=== PATIENT | female | born 1950 | race Caucasian/White ===

== ENCOUNTER 2017-03-25 11:10 | Inpatient (IN) | payer OTHER, MEDICARE ==
[~2017-03-25] VITALS: Ht 162.6 cm; Wt 119.5 kg
[2017-03-29 08:56] LABS: BILIRUBIN NEGATIVE (NEGATIVE); BLOOD NEGATIVE Ery/uL (NEGATIVE); CLARITY CLEAR (CLEAR); COLOR YELLOW (YELLOW); GLUCOSE (U) NORMAL (NORMAL); KETONE (U) NEGATIVE (NEGATIVE); LEUKOCYTES NEGATIVE Leu/uL (NEGATIVE); NITRITE NEGATIVE (NEGATIVE); PROTEIN NEGATIVE (NEGATIVE); SPECIFIC GRAVITY <=1.005 (1.001-1.030)
--- NOTE | 2017-03-30 14:07 | NUR ---
MET WITH PT. TO COMPLETE DISCHARGE PAPERWORK. INSURANCE IS COVERING PT. THROUGH 04/02/17 WITH D/C ON 04/03/17. PT. WILL D/C HOME. PT. REQUESTED [facility]/FADY FOR PT/OT AND NURSING ASSESSMENT. [facility] TO DELIEVER A HOSPITAL BED UPON DISCHARGE. D/C NOTICE AND QUESTIONNAIRE GIVEN.
[2017-03-31 19:42] LABS: BILIRUBIN NEGATIVE (NEGATIVE); BLOOD NEGATIVE Ery/uL (NEGATIVE); CLARITY CLEAR (CLEAR); COLOR YELLOW (YELLOW); GLUCOSE (U) NORMAL (NORMAL); KETONE (U) TRACE mg/dL (NEGATIVE); LEUKOCYTES NEGATIVE Leu/uL (NEGATIVE); NITRITE NEGATIVE (NEGATIVE); PROTEIN NEGATIVE (NEGATIVE); SPECIFIC GRAVITY >=1.030 (1.001-1.030); UROBILINOGEN 0.2 mg/dL (0.2-1.0); pH 5.5 (5.0-9.0)
[2017-03-31 19:50] LABS: BACTERIA TRACE
[2017-03-31 19:51] LABS: AMORPHOUS URATES CRYSTALS LARGE
[2017-04-03] MEDS ORDERED: ONDANSETRON ODT4 MG PO (13:50)
[2017-04-03] MEDS ORDERED: MOBIC15 MG PO (13:51)
[2017-04-03] MEDS ORDERED: COLACE100 MG PO (13:51)
[2017-04-03] MEDS ORDERED: FEOSOL325 MG PO (13:56)
[2017-04-03] MEDS ORDERED: ORACEA40 MG PO (13:56)
[2017-04-03] MEDS ORDERED: ELIQUIS5 MG PO (13:57)
[2017-04-03] MEDS ORDERED: FEMARA2.5 MG PO (13:57)
[2017-04-03] MEDS ORDERED: LOPRESSOR25 MG PO (13:57)
[2017-04-03] MEDS ORDERED: LIPITOR40 MG PO (13:57)
[2017-04-03] MEDS ORDERED: PRILOSEC20 MG PO (13:58)
[2017-04-03] MEDS ORDERED: LAXATIVE OF CHOICE (13:58)
[2017-04-03] MEDS ORDERED: PERCOCET 5/3251 TAB PO (14:02)
[2017-04-03] MEDS ORDERED: BACLOFEN 10MG T10 MG PO (14:03)
== END 2017-04-03 13:46 | disposition home health service (06) | DRG 563 ==
LOC: FSNU 11:10
PROVIDERS: Internal Medicine; Nurse Practitioner Adult Health; ADMIT Internal Medicine
DX: S42.291A Other displaced fracture of upper end of right humerus, initial encounter for closed fracture (principal); I48.0 Paroxysmal atrial fibrillation; I47.1 Supraventricular tachycardia; Z47.1 Aftercare following joint replacement surgery; Z96.611 Presence of right artificial shoulder joint; W01.0XXA Fall on same level from slipping, tripping and stumbling without subsequent striking against object, initial encounter; Y93.01 Activity, walking, marching and hiking; Y92.009 Unspecified place in unspecified non-institutional (private) residence as the place of occurrence of the external cause; Z79.01 Long term (current) use of anticoagulants; I10 Essential (primary) hypertension; E78.5 Hyperlipidemia, unspecified; K21.9 Gastro-esophageal reflux disease without esophagitis; M85.821 Other specified disorders of bone density and structure, right upper arm; S50.01XA Contusion of right elbow, initial encounter; S80.01XA Contusion of right knee, initial encounter; S60.211A Contusion of right wrist, initial encounter; S83.521A Sprain of posterior cruciate ligament of right knee, initial encounter; Z85.3 Personal history of malignant neoplasm of breast; Z79.899 Other long term (current) drug therapy; Z88.2 Allergy status to sulfonamides; Z88.5 Allergy status to narcotic agent; Z88.0 Allergy status to penicillin; I48.2 Chronic atrial fibrillation
CPT/HCPCS: 81001; 81003; 87088; 97110; 97116; 97163; 97167; 97530; 97530-GP; 97535; 97537